=== PATIENT | female | born 1970 | race Two or more races ===

== ENCOUNTER 2017-06-11 13:46 | Outpatient (CLI) | payer BC | END 2017-06-11 23:59 | disposition home or self-care (01) | LOC: WOU 13:46 | PROVIDERS: ATTEND Surgery | PROC: 069Y3ZZ Drainage of Lower Vein, Percutaneous Approach (ICD-10-PCS; principal; 2017-06-11) | DX: K64.5 Perianal venous thrombosis (principal); K64.8 Other hemorrhoids; R10.2 Pelvic and perineal pain | CPT/HCPCS: 10140; A6402; J3490 ==